=== PATIENT | male | born 1995 | race African-American/Black ===

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

== ENCOUNTER 2017-01-03 12:42 | Emergency (ER) | payer MEDICAID, OTHER ==
[~2017-01-03] VITALS: Ht 170.2 cm; Wt 78.0 kg
[2017-01-03 12:51] VITALS: BP 132/68
[2017-01-03] MEDS ORDERED: BACITRACIN ZINC OINT UDPKT TOP ONE (13:30)
== END 2017-01-03 13:55 | disposition home or self-care (01) ==
LOC: ER 12:43
DX: Z48.02 Encounter for removal of sutures (principal); Z98.890 Other specified postprocedural states
CPT/HCPCS: 99282; Z7610